=== PATIENT | female | born 1935 | race Caucasian/White ===

== ENCOUNTER 2024-01-03 20:12 | Emergency (ER) | payer OTHER, SELFPAY ==
[2024-01-03 20:25] VITALS: BP 163/63
[2024-01-03 20:44] LABS: % Basophils 1.4 % (0-2); % Eosinophils 3.9 % (0-6); % Immature Granulocytes 0.3 % (0-0.5); % Lymphocytes 33.3 % (20.5-51.1); % Monocytes 9.9 % (1.7-9.3); % Neutrophils 51.2 % (42.2-75.2); Absolute Basophils 0.1 10^3/uL (0-0.2); Absolute Eosinophils 0.3 10^3/uL (0-0.7); Absolute Lymphocytes 2.3 10^3/uL (1.2-3.4); Absolute Monocytes 0.7 10^3/uL (0.1-0.6); Absolute Neutrophils 3.6 10^3/uL (1.4-6.5); Hemoglobin 11.9 g/dL (12.0-16.0); Mean Corpuscular Hgb 32.2 pg (27.0-31.0); Mean Corpuscular Volume 92.1 fL (81.0-99.0); Mean Platelet Volume 9.1 fL (7.4-10.4); Nucleated Red Blood Cells % 0 %; Platelet Count 308 10^3/uL (130-400); Red Blood Cell Count 3.69 10^6/uL (4.20-5.40); Red Cell Dist. Width 13.4 % (11.5-14.5)
[2024-01-03 20:58] LABS: ALT (SGPT) 15 U/L (0-35); AST (SGOT) 23 U/L (14-36); Albumin 3.8 g/dl (3.5-5.0); Alkaline Phosphatase 66 U/L (38-126); Blood Urea Nitrogen 18 mg/dl (7-17); Calcium 9.4 mg/dl (8.4-10.2); Carbon Dioxide 25 mmol/L (22-30); Chloride 104 mmol/L (98-107); Glucose 129 mg/dl (70-99); Potassium 3.8 mmol/L (3.5-5.1); Sodium 140 mmol/L (135-145); Total Bilirubin 0.5 mg/dl (0.2-1.3); Total Protein 6.3 g/dl (6.3-8.2); eGFR > 60.00
[2024-01-03 21:00] VITALS: BP 154/62
[2024-01-03 21:01] VITALS: BP 154/62
[2024-01-03 21:08] LABS: Troponin I < 0.012 ng/ml
[2024-01-03 21:09] VITALS: BMI 29.1
[2024-01-03 22:00] VITALS: BP 155/80
--- NOTE | 2024-01-03 22:26 | ED.GENMED ---
History of Present Illness
General
Chief Complaint: Chest Pain
Source: patient
Exam Limitations: none
Time Seen by Provider: 01/03/24 21:45
Travel History
Have you had any contact with someone who has COVID-19?: No
Do you have any symptoms of coronavirus? Fever > 100 degrees, chills, cough, shortness of breath, sore throat, loss of taste or smell, muscle aches, or headache?: No
History of Present Illness
History of Present Illness:
This is a 88 year old female that comes in with c/o chest pain. States that she had upper back pain for the past 3-4 days but she is moving. States that this got more intense today and she started with chest pain. States that her chest pain was
severe. States that she took NItro X 2 and the pain must have gone away as she fell asleep. States that the pain is gone at this time. States that she has diarrhea all the time. Denies any fever, chills, SOB, abd pain, nausea, vomiting, headache,
dizziness, urinary burning.
Past History
Past History
ED Past Medical History: Asthma, CAD, Cancer (Uterine CA, Breast CA, Tongue cancer), HTN, Hypercholesterolemia, NIDDM, Other (glaucoma, chronic back pain, PNA, Gi bleeding, IBS, UTI, Radiation Colitis, Macular degeneration, Glaucoma, ) and Other
(endometrial cancer, irritable bowel syndrome, radiation colitis, GI bleed, extra heart beats, Pancreatitis, Vertigo); Negative CVA
ED Past Surgical History: Cardiac (Stents X 3, Coil in heart), Cholecystectomy, Gynecological (hysterectomy, lumpectomy), Orthopedic (lumbar surgeries) and Other (back surgery, Cataracts, Right eye surgery, )
Patient has exhibited threatening behavior?: No
Social History
Tobacco: Non-smoker
Alcohol: Occasional (Wine)
Drug: None
Personal:
Living: with family
Employment: Retired
Family History
Family History: Other (Reviewed and noncontributory)
Review of Systems
Review of Systems
All Other Systems: ROS reviewed and negative except as documented in HPI and ROS
Constitutional: Reports no symptoms; Denies fever or chills
EENT: Reports no symptoms
Respiratory: Denies cough or trouble breathing
Cardiac: Reports chest pain
ABD/GI: Reports diarrhea; Denies abdominal pain, nausea or vomiting
: Reports no symptoms; Denies dysuria, frequency or urgency
Musculoskeletal: Reports no symptoms
Skin: Reports no symptoms
Neurological: Reports no symptoms; Denies dizzy or headache
Psychiatric: Reports no symptoms
Phy Exam
General Physical Exam
General Presentation: well appearing and no apparent distress
General age: appears stated age
General Skin: warm and dry
General Habitus: normal
General Mental: alert
ENT Exam
ENT Exam: TM's normal, pharynx normal and neck supple
Eye Exam
Eye Exam: EOMI
Cardiovascular Exam
Cardiovascular Exam: regular rate/rhythm, no murmur and normal peripheral pulses
Pulmonary Exam
Pulmonary Exam: lungs clear, no respiratory distress, no rales, chest non tender, no crackles, no rhonchi, no wheezing and no cough
Gastrointestinal Exam
Gastrointestinal Exam: normal bowel sounds, soft, no organomegaly, no pulsatile mass, non distended and tender (Lower abd tenderness only with palpation)
Musculoskeletal Exam
Musculoskeletal Exam: full ROM and edema (Nonpitting ankle edema)
Skin Exam
Skin Exam: normal color, warm/dry, no rash and no petechia
Psychiatric Exam
Psychiatric Exam: normal mood/affect
Scores
Heart Score for Chest Pain Patients
STEMI patient?: No
History: Slightly or Non-Suspicious
ECG: Normal
Age: >/= 65 years
Risk Factors: >/= 3 Risk Factors or History of CAD
Troponin: </= Normal Limit
Heart Score for Chest Pain Patients: 4
Heart Score Risk: 20.3% MACE over next 6 weeks
Course
Orders/Labs/Results
Orders:
Orders
01/03/24 20:15
EKG [Electrocardiogram (*1)] Urgent
Reason for Study: Chest Pain
EKG- Treatment ONCE
01/03/24 20:35
CBC/With Diff [Complete Blood Count/With Diff] Urgent
CMP [Comprehensive Metabolic Panel] Urgent
Troponin I Urgent
01/03/24 22:25
CR Chest - 2 Views Urgent
Comment:
Reason For Exam: Chests pain
01/03/24 22:26
EKG- Treatment ONCE
01/03/24 23:35
Electrocardiogram (*1) Urgent
Reason for Study: Chest Pain
Other Reason for Exam: Repeat with Troponin
01/03/24 23:37
Troponin I Urgent
01/03/24 23:40
EKG [Electrocardiogram (*1)] Urgent
Reason for Study: Chest Pain
EKG- Treatment ONCE
Abnormal Lab Results
01/03/24
20:35
RBC 3.69 L 10^6/uL
(4.20-5.40)
Hgb 11.9 L g/dL
(12.0-16.0)
Hct 34.0 L %
(37.0-47.0)
MCH 32.2 H pg
(27.0-31.0)
Absolute Monos (auto) 0.7 H 10^3/uL
(0.1-0.6)
Monocytes % 9.9 H %
(1.7-9.3)
BUN 18 H mg/dl
(7-17)
Glucose 129 H mg/dl
(70-99)
01/03/24 20:35
01/03/24 20:35
H/H slightly low. Slight Dehydration. Glucose nonfasting. Troponin <0.012
Second Troponin <0.012
Vital Signs
Initial and Last Documented VS:
Initial Vital Signs
Temp Pulse Resp BP Pulse Ox
97.5 F 68 18 163/63 97
01/03/24 20:25 01/03/24 20:25 01/03/24 20:25 01/03/24 20:25 01/03/24 20:25
Last Documented Vital Signs
Temp Pulse Resp BP Pulse Ox
97.5 F 75 21 155/80 98
01/03/24 20:25 01/04/24 00:15 01/04/24 00:15 01/03/24 22:00 01/04/24 00:15
MDM/Problems Addressed
Differential Diagnosis Includes:
Coronary syndrome. Reflux
MDM/Problems Addressed:
This is a 88 year old female that comes in with c/o chest pain. Prior to today patient had upper back pain for 3-4 days. Then today the pain came around to the chest and she took Nitro X 2 and slept. States that she is pain free at this time.
Will get labs. Chest x-ray. Explained to patient that even thought everything may be normal will place patient on the Cardiology hot line for further evaluation with the Emergency Response Coordinator.
Repeat ECG: rate 76, NSR, Left axis, Normal QRS, negative for ischemia.
Back into see patient. Explained that her Second troponin is also normal. Will place patent on the Cardiology hot line for further evaluation. Patient to return with increased pain, or any other concerns.
Chronic conditions affecting care: DM, CAD and Cancer (Breast, tongue and endometrial)
Acute Exacerbation and/or Progression of Chronic Illness: CAD
*Radiology
Radiology exam reviewed: preliminary read by ED provider (Chest- Negative for active disease)
*Pulse Oximetry
Patient hypoxic: no
*EKG
Interpreted by ED Provider?: Yes
Heart Rate: 75
Rate: normal
Rhythm: sinus arrhythmia
[place]: normal axis and left axis deviation
Interval: normal interval
QRS Pattern: normal QRS
Ischemia: no ischemia
*Critical Care Note
Total Time (30-74mins, 75-104mins- exclusive of procedures): Not Applicable
ED Attending Note
-
Portions of this chart may have been created with voice recognition software.� Occasional wrong word or��sound alike� substitutions may have occurred due to the inherent limitations of voice recognition software.
Discharge Plan
Departure
Patient Disposition: Home (Routine Discharge)
Date of Disposition: 01/04/24
Time of Disposition: 00:35
Patient with high blood pressure during this ER visit?: Yes
Condition: Good
Covid-19: Not Applicable
Discharge Problem:
Chest pain
Instructions: Chest Pain DCA Follow Up, BLOOD PRESSURE
Prescriptions:
No Action
torsemide 5 MG tablet
5 mg PO DAILY
nitroglycerin 0.4 MG tablet, sublingual
0.4 mg sublingual [id number] PRN (Reason: chest pain) Qty: 20 3RF
allopurinol 300 MG tablet
150 mg PO DAILY
timolol maleate 1 DROP drops
1 drp BOTH EYES BID
isosorbide mononitrate 30 MG tablet extended release 24 hr
30 mg PO HS
cholecalciferol (vitamin D3) 1,000 UNITS tablet
1,000 units PO DAILY
multivitamin with folic acid [Tab-A-Kim] 1 TABLET tablet
1 tab PO DAILY
[place] 3-6-9 1,200 MG capsule
1,200 mg PO DAILY
Vyzulta 5 ML drops
1 drp BOTH EYES HS
carvedilol 3.125 MG tablet
3.125 mg PO BID
aspirin 81 MG tablet,delayed release (DR/EC)
81 mg PO DAILY 0RF
alendronate [Fosamax] 70 mg Tablet
70 mg PO SHANNON
rosuvastatin 5 mg Tablet
5 mg PO MOWEFR
Referrals:
Colden,Jannet Luba, INDUCTION MACHINE OPERATOR [Family Provider] - Follow up in 2-3 days
Activity Restrictions/Additional Instructions:
As discussed, your blood work shows very slight Dehydration. Your Both Troponin are normal. However, since you took Nitro at home you have been place on the Cardiology hot line. This means that the Emergency Response Coordinator office will call you the next business
day. You may also call them and let them know you were here and need a follow up with the Emergency Response Coordinator. IF YOU HAVE INCREASED OR CHANGING PAIN, OR YOU HAVE ANY OTHER CONCERNS PLEASE PLEASE RETURN TO THE EMERGENCY ROOM.
Interventions
Interventions:
*Risk Screen - Suicide Last Done: 01/03/24 20:29
*General Assessment Last Done: 01/03/24 20:29
*Neglect/Abuse Screening Last Done: 01/03/24 20:29
ED- Fall Risk Assessment Last Done: 01/03/24 21:06
*ED COVID-19 Vaccine History Last Done: 01/03/24 20:29
ED- Cardiac Assessment Last Done: 01/03/24 21:06
[2024-01-04 00:15] LABS: Troponin I < 0.012 ng/ml
[2024-01-04 00:45] VITALS: BP 164/54
== END 2024-01-04 00:58 | disposition home or self-care (01) ==
LOC: EMR 20:12
PROVIDERS: Clinical Nurse Specialist Family Health; Emergency Medicine; EMERGENCY PHYSICIAN Student in an Organized Health Care Education/Training Program; FAMILY PHYSICIAN Nurse Practitioner Primary Care
DX: R07.9 Chest pain, unspecified (principal); R19.7 Diarrhea, unspecified; I10 Essential (primary) hypertension; I25.10 Atherosclerotic heart disease of native coronary artery without angina pectoris; E11.9 Type 2 diabetes mellitus without complications
CPT/HCPCS: 99285; 71046; 80053; 84484; 85025; 93005

== ENCOUNTER → 2024-01-15 10:22 | Outpatient (REF) | payer OTHER, SELFPAY | LOC: RAD 10:22 | PROVIDERS: ATTENDING PHYSICIAN Nurse Practitioner Family | DX: M54.6 Pain in thoracic spine (principal) | CPT/HCPCS: 71111; 72072 ==